=== PATIENT | male | born 1945 | race Caucasian/White ===

== ENCOUNTER 2022-07-31 09:45 | Day surgery (SDC) | payer MEDICARE, OTHER ==
[2022-07-31] MEDS ORDERED: LIDOCAINE HCL 1% 50 MG/5 ML VL PF IJ ONE (09:46)
[2022-07-31] MEDS ORDERED: BUPIVACAINE 0.5% VIAL IJ ONE (09:46)
[2022-07-31] MEDS ORDERED: Decadron 4 MG INJ IV ONE (09:46)
[2022-07-31] MEDS ORDERED: DIPRIVAN 200 MG/20 ML IV ONE ×2 (11:52→11:59)
--- NOTE | 2022-07-31 12:48 | XRAY ---
Indication: Right C2-C5 RFA. Intraoperative fluoroscopy provided for 28 seconds. 4 digital spot image submitted for interpretation demonstrates posterior needle tips projecting over the expected right C2-C5 nerve roots. Correlate with intraoperative findings/report.
--- NOTE | 2022-07-31 14:11 | XRAY ---
28 seconds of fluoroscopy was used in surgery for a right C2-C5 RFA.
[2022-07-31] MEDS ORDERED: Lactated Ringers 1,000 ML IV ONE (15:18)
== END 2022-07-31 12:30 | disposition home or self-care (01) ==
LOC: SDC-PAIN 09:45
PROVIDERS: ATTEND Psychiatry & Neurology Pain Medicine
DX: M47.812 Spondylosis without myelopathy or radiculopathy, cervical region (principal); Z79.899 Other long term (current) drug therapy
CPT/HCPCS: 64633; 64634; 72040; 77002; 99100; J1100; J2001; J2704

== ENCOUNTER 2022-08-07 09:53 | Day surgery (SDC) | payer MEDICARE, OTHER ==
[2022-08-07] MEDS ORDERED: Sodium Chloride 0.9(Preservative Free) 10 ML IJ ONE (09:54)
[2022-08-07] MEDS ORDERED: Decadron 4 MG INJ IV ONE (09:54)
[2022-08-07] MEDS ORDERED: BUPIVACAINE 0.5% VIAL IJ ONE (09:54)
[2022-08-07] MEDS ORDERED: DIPRIVAN 200 MG/20 ML IV ONE ×2 (11:26→11:34)
[2022-08-07] MEDS ORDERED: Lactated Ringers 1,000 ML IV ONE (15:04)
--- NOTE | 2022-08-07 19:10 | XRAY ---
Indication: Left C2-C5 RFA. Intraoperative fluoroscopy provided for 38 seconds. 5 digital spot image submitted for interpretation demonstrates posterior needle tips projecting over the expected left C2-C5 nerve roots. Correlate with intraoperative findings/report.
--- NOTE | 2022-08-07 19:25 | XRAY ---
38 seconds of fluoroscopy was used in surgery for a left C2-C5 RFA.
== END 2022-08-07 12:05 | disposition home or self-care (01) ==
LOC: SDC-PAIN 09:53
PROVIDERS: ATTEND Psychiatry & Neurology Pain Medicine
DX: M47.812 Spondylosis without myelopathy or radiculopathy, cervical region (principal); Z79.899 Other long term (current) drug therapy
CPT/HCPCS: 64633; 64634; 72040; 77002; 99100; J1100; J2704